=== PATIENT | male | born 1995 | race Caucasian/White ===

== ENCOUNTER 2023-11-25 11:21 | Emergency (ER) | payer OTHER ==
[~2023-11-25] VITALS: Ht 193 cm; Wt 111.9 kg
[2023-11-25 12:14] LABS: BASO % 0.2 % (0.0-1.0); EOS % 0.5 % (0.0-3.0); HEMATOCRIT 51.7 % (42.0-52.0); HEMOGLOBIN 18.1 g/dl (13.5-17.5); LYMPH # 0.2 10^3/uL (1.5-5.0); LYMPH % 2.8 % (24.0-44.0); MEAN CORPUSCULAR HEMOGLOBIN 30.1 pg (27.0-33.0); MEAN CORPUSCULAR VOLUME 85.9 fl (80.0-96.0); MONO # 0.3 10^3/uL (0.0-0.8); MONO % 3.8 % (2.0-8.0); NEUTROPHILS # 7.7 10^3/uL (1.5-8.5); NEUTROPHILS % 92.5 % (36.0-66.0); PLATELET COUNT, AUTOMATED 195 10^3/uL (150-450); RED BLOOD COUNT 6.02 10^6/uL (4.30-6.10); WHITE BLOOD COUNT 8.3 10^3/uL (4.0-10.0)
[2023-11-25] MEDS: ONDANSETRON 4MG 2ML VIAL IV ONE (12:19)
[2023-11-25] MEDS: MORPHINE 2 MG/ML 1ML VIAL IV ONE (12:19)
[2023-11-25 12:25] LABS: INR 1.05; PARTIAL THROMBOPLASTIN TIME 23.3 SECONDS (24.8-34.2); PROTHROMBIN TIME 13.4 SECONDS (12.5-14.5)
[2023-11-25 12:39] LABS: LIPASE 23 U/L (12-53)
[2023-11-25 12:41] LABS: AMYLASE 35 U/L (30-118)
[2023-11-25 12:42] LABS: ALBUMIN 4.6 G/DL (3.2-5.2); ALKALINE PHOSPHATASE 62 U/L (46-116); ALT/SGPT 63 U/L (7.0-40); AST/SGOT 31 U/L (<34); BILIRUBIN,TOTAL 3.1 MG/DL (0.3-1.2); BLOOD UREA NITROGEN 15 MG/DL (9-23); CALCIUM LEVEL 9.4 MG/DL (8.5-10.1); CARBON DIOXIDE LEVEL 24 MMOL/L (20-31); CHLORIDE LEVEL 107 MMOL/L (98-107); CREATININE FOR GFR 0.82 MG/DL (0.70-1.30); GLOMERULAR FILTRATION RATE > 60.0 (>60); GLUCOSE, FASTING 127 MG/DL (60-100); POTASSIUM SERUM 4.5 MMOL/L (3.5-5.1); SODIUM LEVEL 140 MMOL/L (136-145); TOTAL PROTEIN 7.8 G/DL (5.7-8.2)
[2023-11-25] MEDS ORDERED: ISOVUE-370 76% 100ML VIAL As Ordered ONE (13:01)
[2023-11-25] MEDS: LOPERAMIDE 2 MG CAPLET PO ONE (13:20)
[2023-11-25] MEDS: METOCLOPRAMIDE INJ 10MG/2ML VIAL IV ONE (13:20)
[2023-11-25] MEDS: NS 1,000 ML IV ONE (14:00)
[2023-11-25] MEDS ORDERED: ONDA4TAB6 PO (14:28)
[2023-11-25] MEDS ORDERED: REGL10TA6 PO (14:28)
[2023-11-25 15:01] VITALS: BP 126/72; TEMP 98.2; O2SAT 98
== END 2023-11-25 15:03 | disposition home or self-care (01) ==
LOC: M ED 11:21
DX: A09 Infectious gastroenteritis and colitis, unspecified (principal); K57.30 Diverticulosis of large intestine without perforation or abscess without bleeding; K76.0 Fatty (change of) liver, not elsewhere classified; F17.200 Nicotine dependence, unspecified, uncomplicated
CPT/HCPCS: 74177; 80048; 80076; 81001; 82150; 83605; 83690; 85025; 85610; 85730; 86140; 87086; 87486; 87581; 87633; 87798; 96361; 96374; 96375; 99284; J2405; J2765; Q9967